=== PATIENT | male | born 1950 | race Caucasian/White ===

== ENCOUNTER 2024-12-08 18:32 | Emergency (ER) | payer MEDICARE, BC, SELFPAY ==
[2024-12-08] VITALS (13 sets, daily range): BP systolic 125–172; BP diastolic 79–99; PULSE 73–118; RESP 6–33; TEMP 37.9; O2SAT 95–98
--- NOTE | 2024-12-08 19:19 | ED.CHESTPAIN ---
HPI - Chest Pain General Chief Complaint: Chest Pain Stated Complaint: Chest pain Time Seen by Provider: 12/08/24 18:45 History of Present Illness HPI narrative: This 74-year-old male comes in with his and reports some chest discomfort that began about 5 hours prior to arrival. He states that he can make it worse by taking a deep breath. He does not have any nausea, vomiting, lightheadedness, shortness of breath, or diaphoresis. He does not have any exercise intolerance and states that he shovels snow the last couple days without any symptoms. He does have risk factors for heart disease including his father and his younger brothers. He does not smoke but does have diabetes with hyperlipidemia and hypertension. Related Data Home Medications ?Medication ?Instructions ?Recorded ?Confirmed metformin 500 mg tablet mg 12/08/24 simvastatin 10 mg tablet 10 mg PO DAILY 12/08/24 12/08/24 Previous Rx's ?Medication ?Instructions ?Recorded apixaban 5 mg tablet (Eliquis) 5 mg PO BID #60 tabs 12/08/24 Allergies Allergy/AdvReac Type Severity Reaction Status Date / Time No Known Drug Allergies Allergy Verified 12/08/24 20:55 Review of Systems Status of ROS Reports: 10 or more systems reviewed and unremarkable except as noted in History and below Narrative Constitutional: No fevers, no weight gain or loss. Eyes: No discharge. No vision changes. HENT: No congestion, no sore throat, no ear pain. Cardiovascular: No palpitations. Respiratory: No shortness of breath, no wheezes, no cough. Gastrointestinal: No abdominal pain, no vomiting, no diarrhea. Genitourinary: No dysuria, no hematuria. Musculoskeletal: Normal range of motion. Skin: No rashes, no pruritis. Neurological: No dizziness, weakness, sensory change, speech change. Endo/Heme/Allergies: No bruising or bleeding. No polydipsia. Pysch: no suicidality, no anxiety, no insomnia. All other systems reviewed and are negative. PFSH PFSH Social History Smoking Status: Unknown if ever smoked How often do you have a drink containing alcohol: never AUDIT-C Alcohol total score: 0 Non-prescribed substance use: denies use Exam Narrative Exam Narrative: Constitutional: Well-developed, well-nourished, no acute distress. HEENT: Normocephalic, atraumatic. Neck: Normal range of motion. Nontender. Supple. Heart: Irregular. No murmurs. Tachycardia. Intact distal pulses. Lungs: Clear to auscultation. No chest discomfort. No wheezes, rhonchi, or rales. Abdomen: Normal bowel sounds. Nontender. No rebound tenderness. Genitalia: Deferred. Back: No midline tenderness. Normal range of motion. Extremities: Normal range of motion. No injury. Skin: Intact. No rash. Warm. No erythema or pallor. Neurologic: No altered sensation. No weakness. Alert and oriented. Psychiatric: No suicidality. No anxiety or depression. No insomnia. Nursing notes and vitals signs are reviewed. Const Vital Signs, click to edit/add: Vital Signs - 24 hr 12/08/24 18:52 12/08/24 19:02 12/08/24 19:33 Temperature 100.2 F H Pulse Rate 107 H 106 H Pulse Rate [Pulse Oximeter] 118 H Respiratory Rate 20 22 13 Blood Pressure 172/99 H 156/95 H Blood Pressure [Right Upper Arm] 167/87 H Pulse Oximetry 98 96 96 Oxygen Delivery Method Room Air Course Vital Signs Vital signs: Initial Vital Signs Temperature 100.2 F H 12/08/24 18:52 Temperature Source Temporal Artery Scan 12/08/24 18:52 Pulse Rate 118 H 12/08/24 18:52 Respiratory Rate 20 12/08/24 18:52 Blood Pressure 167/87 H 12/08/24 18:52 Blood Pressure Mean 113 H 12/08/24 18:52 Pulse Oximetry 98 12/08/24 18:52 Oxygen Delivery Method Room Air 12/08/24 18:52 Vital Signs Temperature 100.2 F H 12/08/24 18:52 Pulse Rate 118 H 12/08/24 18:52 Respiratory Rate 20 12/08/24 18:52 Blood Pressure 167/87 H 12/08/24 18:52 Pulse Oximetry 98 12/08/24 18:52 Oxygen Delivery Method Room Air 12/08/24 18:52 Temperature 100.2 F H 12/08/24 18:52 Pulse Rate 106 H 12/08/24 19:33 Respiratory Rate 13 12/08/24 19:33 Blood Pressure 156/95 H 12/08/24 19:33 Pulse Oximetry 96 12/08/24 19:33 Oxygen Delivery Method Room Air 12/08/24 18:52 Medications Administered Medications: Generic Name Dose Route Start Last Admin Trade Name Glynn PRN Reason Stop Dose Admin Apixaban 10 mg 12/08/24 20:29 12/08/24 20:54 Apixaban 5 Mg Tablet PO 12/08/24 20:30 10 mg ONCE ONE Administration Propofol 200 mg 12/08/24 20:29 12/08/24 20:47 Propofol 10 Mg/Ml Inj IV 12/08/24 20:30 60 mg ONCE ONE Administration Discontinued Medications Generic Name Dose Route Start Last Admin Trade Name Glynn PRN Reason Stop Dose Admin Diltiazem HCl 20 mg 12/08/24 19:18 12/08/24 19:39 Diltiazem 5 Mg/Ml Inj IVP 12/08/24 19:19 20 mg ONCE ONE Administration Sodium Chloride 1,000 mls @ 1,000 mls/hr 12/08/24 19:30 12/08/24 19:48 0.9 % Sodium Chloride 1000 Ml IV 12/08/24 20:29 1,000 mls/hr .Q1H ALTAGRACIA Administration Magnesium Sulfate 2 gm 12/08/24 19:18 12/08/24 19:40 Magnesium Sulfate 2 Gm/50 Ml Piggyback IVPB 12/08/24 19:19 2 gm ONCE ONE Administration MDM - Chest Pain MDM Narrative Medical decision making narrative: This 74-year-old male comes in reporting some reproducible chest discomfort and is noted to have new onset atrial fibrillation and heart rate a bit increased. An IV is established where he did receive 2 g of magnesium and 20 mg of diltiazem. His heart rate returned back into normal range but he continues in atrial fibrillation. Lab results returned with reassuring findings. His troponin is in normal range. EKG is not showing any sign of ST or T-wave abnormalities. I did discuss with the patient some options going forward regarding his atrial fibrillation. He seems rather certain that this rhythm began earlier today. He is a good candidate for synchronized cardioversion. The medicines he received did not bring about returned to normal sinus rhythm. After informed consent was acquired the patient was connected to the pads for synchronized cardioversion. Dr. Jose assisted in this procedure. She administered 60 mg of propofol for adequate sedation. Synchronized cardioversion was attempted once with successful results using 150 joules of energy. The patient returned to normal sinus rhythm and tolerated the procedure well. He did not need any respiratory support through to out this time. He did receive a tablet of Eliquis 10 mg and I prescribed a starter pack for Eliquis to be taken over the next month or so. Lab Data Labs: Lab Results 12/08/24 Range/Units 19:15 WBC 12.84 H (4.50-11.00) K/uL RBC 4.79 (4.30-5.90) m/uL Hgb 13.4 L (13.5-17.5) gm/dL Hct 41.3 (37.0-53.0) % MCV 86 (80-100) fL MCH 28 (26-34) pg MCHC 32 (32-36) gm/dL RDW Coeff of Victoriano 13.1 (11.5-15.5) % Plt Count 270 (140-440) K/uL Neut % (Auto) 86.1 H (42.0-72.0) % Lymph % (Auto) 5.4 L (20-44) % [place] % (Auto) 7.9 (0.0-11.0) % Eos % (Auto) 0.3 (0.0-7.0) % Baso % (Auto) 0.2 (0.0-3.0) % Neut # (Auto) 11.10 H (1.7-7.0) K/uL Lymph # (Auto) 0.70 L (0.90-2.90) K/uL [place] # (Auto) 1.00 H (0.00-0.90) K/UL Eos # (Auto) 0.00 (0.00-0.50) K/uL Baso # (Auto) 0.00 (0.00-0.30) K/uL Abs Immat Gran (auto) 0.00 (0.00-0.30) K/uL Imm/Tot Granulo (auto) 0.1 % Sodium 138 (135-149) mmol/L Potassium 3.9 (3.6-5.1) mmol/L Chloride 104 (96-114) mmol/L Carbon Dioxide 21 (20-32) mmol/L Anion Gap 13 (7-15) mEq/L BUN 15 (7-30) mg/dL Creatinine 0.8 (0.5-1.5) mg/dL Estimated GFR 94 ml/min Glucose 143 H (60-115) mg/dL Calcium 9.3 (8.4-10.6) mg/dL Magnesium 2.0 (1.5-2.6) mg/dL POC Troponin I 0.01 (0.01-0.04) ng/ml ECG Data Attestation: I personally reviewed and interpreted this ECG as follows: Interpretation: Atrial fibrillation. Rate is 106 beats per minute. There are no specific ST or T-wave abnormalities. Discharge Plan Discharge Clinical Impression: Atrial fibrillation with rapid ventricular response Patient Disposition: Home w/ Parent or Adult Condition: Improved Additional Instructions: Take Eliquis as prescribed. Follow up with MD or return if symptoms are recurrent or worsening. Prescriptions: New Eliquis 5 mg tablet 5 mg PO BID Qty: 60 2RF No Action metformin 500 mg tablet Patient Comments: TAKE 2 TABLETS (1000 MG) BY MOUTH TWICE A DAY simvastatin 10 mg tablet 10 mg PO DAILY Follow Up/Referrals: Provider,Not a Local [Primary Care Provider] - Stand Alone Forms: [employer] Info Instructions
[2024-12-08 19:27] LABS: Basophils Percent Auto 0.2 % (0.0-3.0); Eosinophils Percent Auto 0.3 % (0.0-7.0); Hematocrit 41.3 % (37.0-53.0); Hemoglobin* 13.4 gm/dL (13.5-17.5); Immature Granulocytes Pct Auto 0.1 %; Lymphocytes Percent Auto 5.4 % (20-44); Mean Corpuscular HGB Conc 32 gm/dL (32-36); Mean Corpuscular Hemoglobin 28 pg (26-34); Mean Corpuscular Volume 86 fL (80-100); Monocytes Percent Auto 7.9 % (0.0-11.0); Neutrophils Percent Auto 86.1 % (42.0-72.0); Platelet Count* 270 K/uL (140-440); RDW Coefficient of Variation % 13.1 % (11.5-15.5); Red Blood Count 4.79 m/uL (4.30-5.90); White Blood Count* 12.84 K/uL (4.50-11.00)
--- OUTSIDE RECORDS SUMMARY | 2024-12-08 19:32 | XMS_ITS | Clinical Summary ---
Author Organization [email or web address] Address [address] [place] [address] Care Team Providers Care Puppet Maker Name Role Phone Gallo Alicea MD Primary Care Provider + [phone] Gallo Alicea MD Unavailable [phone] Allergies No known active allergies Medications aspirin 81 mg enteric coated tablet Take 1 tablet (81 mg) by mouth 1 time per day 30 tablet 7 Active Multiple Vitamins-Minerals (ICAPS AREDS 2 PO) Take 1 tablet by mouth 2 times a day Active Multiple Vitamins-Minerals (MULTIVITAMIN ADULTS 50+) TABS Take by mouth 1 time per day Active ReliOn Lancets Thin 26G MISCIndications:Con trolled type 2 diabetes mellitus without complication, without long-term current use of insulin (HCC) 1 each 1 time per day DX code: E11.9 100 each 3 1 Active sildenafil (VIAGRA) 100 MG tabletIndications:E rectile dysfunction, unspecified erectile dysfunction type Take 1 tablet (100 mg) by mouth 1 time a day as needed for other (Specify) (sexual activity) 30 tablet 3 3 Active Accu-Chek Rachel Plus test stripIndications:Co ntrolled type 2 diabetes mellitus without complication, without long-term current use of insulin ([facility]) USE 1 STRIP TO CHECK GLUCOSE ONCE DAILY 100 each 3 4 Active Blood Glucose Monitoring Suppl (BLOOD GLUCOSE MONITOR SYSTEM) w/DeviceIndications :Controlled type 2 diabetes mellitus without complication, without long-term current use of insulin ([facility]),Diabetes mellitus with background retinopathy (HCC) 1 each 1 time per day Glucose monitor and strips covered by his medicare 1 Kit 4 Active ciclopirox (PENLAC) 8 % solutionIndications :Onychomycosis Apply to affected area 2 times a day 6 mL 1 4 Active metFORMIN (GLUCOPHAGE) 500 MG tabletIndications:C ontrolled type 2 diabetes mellitus without complication, without long-term current use of insulin (HCC) Take 2 tablets (1,000 mg) by mouth 2 times a day 360 tablet 2 4 Active simvastatin (ZOCOR) 10 mg tabletIndications:M ixed hyperlipidemia TAKE 1 TABLET BY MOUTH ONCE DAILY IN THE EVENING AT BEDTIME 90 tablet 1 4 Active Active Problems Problem Noted Date Diagnosed Date Obesity (BMI 30-39.9) 03/02/2024 Epiretinal membrane (ERM) of left eye 03/30/2019 Early dry stage nonexudative age-related macular degeneration of both eyes 03/24/2018 Posterior vitreous detachment of both eyes 03/24 Vitreous floaters of both eyes 09/16/2016 Hyperlipidemia 05/22/2014 Hyperopia with astigmatism and presbyopia 2013 Controlled type 2 diabetes mellitus without comp lication 06/18/2011 Screening for condition 03/10/2011 Special screening for malignant neoplasm of pros vyas 03/10/2011 Orchitis and epididymitis 08/26/2006 Diabetes mellitus with background retinopathy Encounters Date Type Department Care Team Description 09/22/2024 Results Follow-Up [facility] [address] [place] [id number] Gallo Alicea MD 09/21/2024 2:00 PM KINESIOTHERAPIST Office Visit [facility] [address] [place] [address] [place] [address] Gallo Alicea MD Anemia, unspecified type (Primary Dx); Controlled type 2 diabetes mellitus without complication, without long-term current use of insulin ([facility]); Mixed hyperlipidemia; Onychomycosis 09/21/[address] [place] [address] Soheila Alonso RN 09/20/2024 11:15 AM KINESIOTHERAPIST Orders Only [facility] [address] [place] [phone] Gallo Alicea MD Controlled type 2 diabetes mellitus without complication, without long-term current use of insulin (HCC); Hematuria, unspecified type from Last 3 Months Immunizations Immunization Administration Dates Next Due Influenza Trivalent w/preserv 06/19/2011 INFLUENZA FLUCELVAX SINGLE D OSE 6 MONTHS AND UP 09/18/2015 INFLUENZA HIGH DOSE (FLUZONE ) 65 YEARS AND UP 06/10/2024,08/21/2023,08/06/2022,06/26,08/04/2020,12/18/2019,08/31/2018 ,08/11/2017 INFLUENZA SINGLE DOSE 0.5ML 6 MONTHS AND UP 11/12/2016 Influenza High Dose Quadrivalent 08/06/2022,06/06,08/04/2020 Influenza Vaccine 08/07/2012 Influenza Vaccine,unspecified 09/18/2015 Moderna COVID-19 Vaccine (Re d Top)12 years and up 06/10/2024 Pfizer COVID-19 BIVALENT Vac cine (Orr Cap) 12 YR and up 07/30/2022 Pfizer COVID-19 MONOVALENT ( Orr Top) 12 Years and up 02/17/2022 Pfizer COVID-19 Vaccine (COM IRNATY) 12 Years And Up 08/31/2023 Pfizer COVID-19 Vaccine(Purp le Top) 12 Years and up 08/01/2021,12/28/2020,12/07/2020 Pneumococcal Conj PCV13 01/04/2016 Pneumococcal Polysaccharide PPSV23 08/31/2018, RSV (ABRYSVO) IM Vaccine 60 Yrs and up or during 32-36 weeks gestation 09/24/2023 TD,adsorbed, 7 years and up 03/10/2011, 7 TDAP 06/26/2021 Td Vaccine (Tenivac) 7 Years and Up 03/10/2011 Zoster Live(Zostavax) 09/18/2015 Family History Medical History Relation Comments Heart Disease Brother 2 Cataracts Father Heart Disease Father Macular Degeneration Father Diabetes Maternal Grandmother Not otherwise listed - Cancer Mother Diabetes Other Macular Degeneration Paternal Uncle Not otherwise listed - Cancer Sister 2 br east Amblyopia Neg Hx Blindness Neg Hx Glaucoma Neg Hx Retinal Detachment Neg Hx Relation Status Comments Brother 1 Alive Brother 2 Alive Father Alive Maternal Grandmother Mother Alive Other Paternal Uncle Sister 1 Alive Sister 2 Alive Social History Tobacco Use Types Packs/Day Years Used Date Smoking Tobacco: Former Cigars Smokeless Tobacco: Never Comments:Cigars #/Week: occa sional Alcohol Use Standard Drinks/Week Comments Yes 2 (1 standard drink = 0.6 oz pur e alcohol) PHQ-2 Answer Date Recorded PHQ-2 Total 0 03/02/2024 Abuse/Neglect Answer Date Recorded Member of Clubs or Organizations Not on file 09/21/2024 Does the patient display any signs or symptoms of abuse or neglect? No 09/21/2024 Sexually Active Control Partners Comments Not Currently Sex and Gender Information Value Date Recorded Sex Assigned at Not on file Legal Sex Male 5:04 AM CDT Gender Identity Not on file Sexual Orientation Not on file Last Filed Vital Signs Vital Sign Reading Time Taken Comments Blood Pressure 128/70 09/21/2024 11:01 AM KINESIOTHERAPIST Pulse 68 09/21/2024 11:01 AM KINESIOTHERAPIST Temperature 36.7 C (98.1 F) 09/21/2024 11:01 AM KINESIOTHERAPIST Respiratory Rate 20 09/21/2024 11:0 1 AM KINESIOTHERAPIST Oxygen Saturation 98% 06/05/2023 11: 50 AM CDT room air Inhaled Oxygen Concentration - - Weight 103.1 kg (227 lb 3.2 oz) 024 11:01 AM KINESIOTHERAPIST Height 177.8 cm (5' 10) 07/12/2024 12: 55 PM CDT Body Mass Index 32.6 07/12/2024 12:55 PM CDT Plan of Treatment Upcoming Encounters Date Type Department Care Team (Late st Contact Info) Description 12/28/2024 11:00 AM CDT Office Visit [facility] [address] [place] [address] Gallo Alicea MD [address] [place] [address] 03/22/2025 1:00 PM CDT Office Visit [facility] [address] [place] [address] Renetta Jackson, OD [address] [place] [address] 04/18/2025 8:05 AM CDT Hospital Encounter [facility] [address] [place] [address] Daryl Bueno MD [address] [place] [address] Screening for colon cancer 04/18/2025 8:05 AM CDT - 04/18/2025 9:08 AM CDT Surgery [facility] [address] [place] [address] Daryl Bueno MD [address] [place] [address] COLONOSCOPY Scheduled Procedures Name Priority Associated Diagnoses Date/Ti me COLONOSCOPY Screening for colon cancer 04/18/2025 8:05 AM CDT Health Maintenance Due Date Last Done Comments Zoster Vaccine (2 of 3) 11/13/2015 09/18/2015 [employer] Directive document 01/31/2017 Hemoglobin A1C Every 3 Months 10/03/2024 07/04/2024, 02/26/2024, 05/21/2023, Additional history exists Covid-19 Vaccine ( season) 2024 06/10/2024, 06/10/2024, 08/31/2023, Additional history exists Diabetic Foot Exam 03/02/2025 03/02/2024, 0 02/11/2022, 02/28/2021, Additional history exists Ophthalmology Exam 03/21/2025 03/21/2024, 0 03/21/2024, 03/16/2023, Additional history exists Colonoscopy 04/16/2025 04/16/2020, 04/04, 04/15/2017, Additional history exists Creatinine 07/04/2025 07/04/2024, 02/03, 05/21/2023, Additional history exists Lipid Screening 07/04/2025 07/04/2024, 05/05, 06/16/2022, Additional history exists Microalbumin 07/04/2025 07/04/2024, 05/05, 06/16/2022, Additional history exists ALT 07/04/2027 07/04/2024, 02/03, 05/21/2023, Additional history exists AST 07/04/2027 07/04/2024, 02/03, 05/21/2023, Additional history exists Platelets 09/20/2027 09/20/2024, 09/04, 07/04/2024, Additional history exists TDAP/TD VACCINE (2 - Td or Tdap) 06/26/2031 06/26/2021, 03/10/2011, 03/10/2011, Additional history exists Hepatitis C Screening Completed 08/04/2017 Pneumococcal Vaccine 50yr + Completed 08/06, 01/04/2016, 03/10/2011 RSV Vaccine, Adult Completed 09/24/2023 Influenza Vaccine Completed 06/10/2024, , 08/06/2022, Additional history exists Hepatitis B Vaccine Aged Out No longe r eligible based on patient's age to complete this topic Procedures Procedure Name Priority Date/Time Associated Diagnosis Comments URINALYSIS DIPSTICK REFLEX TO MICROSCOPIC Routine 09/20/2024 11:20 AM KINESIOTHERAPIST Hematuria, unspecified type LAB ONLY-COMPLETE BLOOD COUNT WITH DIFFERENTIAL Routine 09/20/2024 11:17 AM KINESIOTHERAPIST Controlled type 2 diabetes mellitus without complication, without long-term current use of insulin (HCC) LAB ONLY-COMPLETE BLOOD COUNT WITH DIFFERENTIAL Routine 09/20/2024 11:17 AM KINESIOTHERAPIST Controlled type 2 diabetes mellitus without complication, without long-term current use of insulin (HCC) LIPID PANEL Routine 07/04/2024 10:50 AM CDT Mixed hyperlipidemia COMPREHENSIVE METABOLIC PANEL Routine 07/04/2024 10:50 AM CDT Mixed hyperlipidemia ALBUMIN WITH ALBUMIN/CREATININE RATIO, RANDOM URINE Routine 07/04/2024 10:50 AM CDT Controlled type 2 diabetes mellitus without complication, without long-term current use of insulin (HCC) GLYCATED HEMOGLOBIN Routine 07/04/2024 1 0:50 AM CDT Diabetes mellitus with background retinopathy Controlled type 2 diabetes mellitus without complication, without long-term current use of insulin (HCC) COLONOSCOPY 04/16/2020 8:53 AM CDT HEP C ANTIBODY REFLEX TO QUANTITATIVE CONFIRMATION Routine 08/04/2017 7:56 AM CDT Preventative health care from Last 3 Months or Most Recently Relevant to Health Maintenance Results * URINALYSIS DIPSTICK REFLEX TO MICROSCOPIC (09/20/2024 11:20 AM KINESIOTHERAPIST) Color Urine Yellow Cheryl, Dark Yellow, Straw, Yellow, Colorless 09/20/2024 11:27 AM [facility] Clarity Urine Clear Clear 09/20/2024 11:27 AM [facility] Glucose Urine Negative Negative 09/20/2024 11:27 AM [facility] Bilirubin Urine Negative Negative 11:27 AM [facility] Ketones Urine Negative Negative, 5 mg/dL, 10 mg/dL 09/20/2024 11:27 AM [facility] Specific [place] 1.015 1.002 - 1.030 09/20/2024 11:27 AM [facility] Blood Urine Negative Negative 09/20/2024 11:27 AM [facility] PH Urine 6.0 5.0, 5.5, 6.0, 6.5, 7.0, 7.5, 8.0 09/20/2024 11:27 AM [facility] Protein Urine Negative Negative 09/20/2024 11:27 AM [facility] Urobilinogen < 2 mg/dL < 2 mg/dL 09/20/2024 11:27 AM KINESIOTHERAPIST [facility] Nitrite Negative Negative 09/20/2024 11:27 AM [facility] Leukocyte Esterase Urine Negative Negative 09/20/2024 11:27 AM [facility] Urine URINE SPECIMEN OBTAINED BY CLEAN CATCH PROCEDURE / Unknown Collection / Unknown 09/20/2024 11:20 AM KINESIOTHERAPIST 09/20/2024 11:19 AM KINESIOTHERAPIST Narrative [facility] - 09/20/2024 11:27 AM KINESIOTHERAPIST Microscopic exam not indicated us Gallo Alicea MD LAB NON BLOOD Final Resu lt [facility] [address] [place] [address] * LAB ONLY-COMPLETE BLOOD COUNT WITH DIFFERENTIAL (09/20/2024 11:17 AM KINESIOTHERAPIST) WBC 7.9 4.0 - 11.0 K/uL 09/20/2024 11:24 AM [facility] RBC 5.07 4.40 - 5.80 M/uL 09/20/2024 11:24 AM [facility] Hemoglobin 14.3 13.5 - 17.5 g/dL 09/20/2024 11:24 AM [facility] Hematocrit 43.8 40.0 - 50.0 % 09/20/2024 11:24 AM [facility] MCV 86.4 80.0 - 98.0 fL 09/20/2024 11:24 AM [facility] MCH 28.2 25.5 - 34.0 pg 09/20/2024 11:24 AM [facility] MCHC 32.6 31.5 - 36.5 g/dL 09/20/2024 11:24 AM [facility] RDW-CV 13.6 11.5 - 15.5 % 09/20/2024 11:24 AM [facility] RDW-SD 42.3 35.5 - 50.0 fl 09/20/2024 11:24 AM [facility] Platelet Count 293 140 - 400 K/uL 09/20/2024 11:24 AM [facility] MPV 9.4 8.5 - 12.0 fL 09/20/2024 11:24 AM [facility] Seg Neut Absolute 5.0 1.8 - 8.0 K/uL 09/20/2024 11:24 AM [facility] Lymphocytes Absolute 1.9 0.8 - 4.1 K/uL 09/20/2024 11:24 AM [facility] Monocytes Absolute 0.7 0.0 - 1.0 K/uL 09/20/2024 11:24 AM [facility] Eosinophils Absolute 0.3 0.0 - 0.7 K/uL 09/20/2024 11:24 AM [facility] Basophil Absolute 0.1 0.0 - 0.2 K/uL 09/20/2024 11:24 AM [facility] Immature Granulocyte Absolute <0.04 0.00 - 0.06 K/uL 09/20/2024 11:24 AM [facility] Neutrophils Abs. (Segs and Bands) 5,000 /uL 09/20/2024 11:24 AM [facility] Neutrophils Percent 62.8 % 09/20/2024 11:24 AM [facility] Lymphocytes Percent 23.5 % 09/20/2024 11:24 AM [facility] Monocytes Percent 9.4 % 09/20/2024 11:24 AM [facility] Immature Granulocyte Percent 0.3 % 09/20/2024 11:24 AM [facility] Eosinophils Percent 3.2 % 09/20/2024 11:24 AM [facility] Basophil Percent 0.8 % 09/20/20 11:24 AM [facility] Nucleated RBC 0 <=1 /100 WBC's 09/20/2024 11:24 AM [facility] Blood BLOOD SPECIMEN / Unknown Venipuncture / Unknown 09/20/2024 11:17 AM KINESIOTHERAPIST 09/20/2024 11:17 AM [facility] us Gallo Alicea MD LAB ONLY ORDERS Final Resu lt [facility] [address] [place] [address] * ALBUMIN WITH ALBUMIN/CREATININE RATIO, RANDOM URINE (07/04/2024 10:50 AM CDT) Creatinine Urine 87.80 No Reference Range Established mg/dL 07/04/2024 10:09 PM CDT [facility] Albumin mg/dL <0.50 No Reference Range Established mg/dL 07/04/2024 10:09 PM CDT [facility] Albumin/Creati nine Ratio 07/04/2024 10:09 PM CDT [facility] Comment:Unable to calculate Albumin/Creatinine Ratio. Urine VOIDED URINE SPECIMEN / Unknown Collection / Unknown 07/04/2024 10:50 AM CDT 07/04/2024 10:50 AM CDT Gallo Alicea MD LAB NON BLOOD Final Resu lt [address] [address] * (ABNORMAL) LIPID PANEL (07/04/2024 10:50 AM CDT) Cholesterol 126 <200 mg/dL 07/04/2024 11:29 AM CDT [facility] Triglyceride 183(H) <150 mg/dL 07/04/2024 11:29 AM CDT [facility] HDL 31(L) >=40 mg/dL 07/04/2024 11:29 AM CDT [facility] LDL 58 <=100 mg/dL 07/04/2024 11:29 AM CDT [facility] Blood BLOOD SPECIMEN / Unknown Venipuncture / Unknown 07/04/2024 10:50 AM CDT 07/04/2024 10:50 AM CDT Gallo Alicea MD LAB BLOOD Final Resu lt [facility] [address] [place] [phone] * (ABNORMAL) GLYCATED HEMOGLOBIN (07/04/2024 10:50 AM CDT) Hgb A1C 6.3(H) <5.7 % 07/04/2024 11:14 AM CDT [facility] Estimated Average Glucose 134 mg/dL 07/04/2024 11:14 AM CDT [facility] Blood BLOOD SPECIMEN / Unknown Venipuncture / Unknown 07/04/2024 10:50 AM CDT 07/04/2024 10:50 AM CDT Narrative [facility] - 07/04/2024 11:14 AM CDT ADA Interpretive Guidelines When Using HbA1c for Diagnosis Prediabetes 5.7 - 6.4% Diabetes >= 6.5% When monitoring a person known to have diabetes mellitus, A1C goals must be individualized, however an A1C of <7% is reasonable for most children, adolescents and non adults. ADA Standards of Medical Care in Diabetes - 2023 Gallo Alicea MD LAB BLOOD Final Resu lt Performing Organization Address City/[facility]/ZIP Co de Phone Number [facility] [address] [place] [phone] * (ABNORMAL) COMPREHENSIVE METABOLIC PANEL (07/04/2024 10:50 AM CDT) Glucose 146(H) 70 - 99 mg/dL 07/04/2024 11:29 AM CDT [facility] BUN 16 6 - 22 mg/dL 07/04/2024 11:29 AM CDT [facility] Creatinine 0.83 0.73 - 1.18 mg/dL 07/04/2024 11:29 AM T [facility] BUN/Creatinine Ratio 19.3 10.0 - 25.0 07/04/2024 11:29 AM [facility] Sodium 140 136 - 145 meq/L 07/04/2024 11:29 AM [facility] Potassium 4.6 3.5 - 5.1 meq/L 07/04/2024 11:29 AM [facility] Chloride 107 98 - 109 meq/L 07/04/2024 11:29 AM [facility] CO2 24 20 - 29 meq/L 07/04/2024 11:29 AM [facility] Anion Gap with K 14 6 - 20 meq/L 07/04/2024 11:29 AM [facility] Calcium 9.5 8.5 - 10.5 mg/dL 07/04/2024 11:29 AM [facility] Protein Total 7.7 6.0 - 8.3 g/dL 07/04/2024 11:29 AM [facility] Albumin 3.9 3.2 - 4.6 g/dL 07/04/2024 11:29 AM [facility] Alkaline Phosphatase 71 40 - 150 U/L 07/04/2024 11:29 AM [facility] AST - SGOT 27 <6 - 45 U/L 07/04/2024 11:29 AM [facility] ALT - SGPT 34 <6 - 55 U/L 07/04/2024 11:29 AM [facility] Bilirubin Total 0.5 0.2 - 1.2 mg/dL 07/04/2024 11:29 AM [facility] Corrected Calcium 9.6 8.5 - 10.5 mg/dL 07/04/2024 11:29 AM [facility] Age 74 Years 07/04/2024 11:29 AM [facility] eGFRcr() >90 >=60 mL/min/1.7 3m2 07/04/2024 11:29 AM [facility] Blood BLOOD SPECIMEN / Unknown Venipuncture / Unknown 07/04/2024 10:50 AM CDT 07/04/2024 10:50 AM CDT us Gallo Alicea MD LAB BLOOD Final Resu lt [facility] [address] [facility] [place] [phone] * COLONOSCOPY (04/16/2020 8:53 AM CDT) COLONOSCOPY [facility] Patient Name: Miladis Chery Procedure Date: 04/16/2020 8:53 AM Date of : 1950 Admit Type: Ambulatory Age: 70 Gender: Male Surgeon: DARYL BUENO MD Procedure: Colonoscopy Indications: High risk colon cancer surveillance: Personal history of colonic polyps Providers: DARYL BUENO MD, SENA QUACH RN, RYAN ESPINOZA, PEDRITO RAMON, KINESIOTHERAPIST Medicines: Midazolam 6 mg IV, Propofol per Anesthesia Complications: No immediate complications. Estimated Blood Loss: Estimated blood loss: none. Procedure: Pre-Anesthesia Assessment: - Prior to the procedure, a History and Physical was performed, and patient medications and allergies were reviewed. The patient's tolerance of previous anesthesia was also reviewed. The risks and benefits of the procedure and the sedation options and risks were discussed with the patient. All questions were answered, and informed consent was obtained. Prior Anticoagulants: The patient has taken no previous anticoagulant or antiplatelet agents except for aspirin. ASA Grade Assessment: II - A patient with mild systemic disease. After reviewing the risks and benefits, the patient was deemed in satisfactory condition to undergo the procedure. After I obtained informed consent, the scope was passed under direct vision. Throughout the procedure, the patient's blood pressure, pulse, and oxygen saturations were monitored continuously. The Colonoscope was introduced through the anus and advanced to 5 cm into the ileum. The colonoscopy was performed without difficulty. The patient tolerated the procedure well. The quality of the bowel preparation was good. Findings: Multiple small and large-mouthed diverticula were found in the sigmoid colon. Impression: - Diverticulosis in the sigmoid colon. - No specimens collected. Moderate Sedation: Moderate (conscious) sedation was administered by the endoscopy nurse and supervised by the endoscopist. The following parameters were monitored: oxygen saturation, heart rate, blood pressure, respiratory rate, EKG, adequacy of pulmonary ventilation, and response to care. Total physician intraservice time was 28 minutes. Recommendation: - Patient has a contact number available for emergencies. The signs and symptoms of potential delayed complications were discussed with the patient. Return to normal activities tomorrow. Written discharge instructions were provided to the patient. - Resume previous diet. - Repeat colonoscopy in 5 years for surveillance. - Return to primary care physician PRN. Daryl Bueno MD DARYL BUENO MD 04/16/2020 11:19:14 AM This report has been signed electronically. Number of Addenda: 0 Note Initiated On: 04/16/2020 8:53 AM Procedure Date: 04/16/2020 8:53:48 AM Scope Withdrawal Time 0 hours 21 minutes 37 seconds Total Procedure Duration Time 0 hours 28 minutes 0 seconds Scope In: 10:36:40 AM Scope Out: 11:04:40 AM 04/16/2020 8:53 AM CDT us Daryl Bueno MD IP PROCEDURES Edited R esult - Final * HEPATITIS C ANTIBODY REFLEX TO HCV RNA CONFIRMATION (08/04/2017 7:56 AM CDT) Hepatitis C Antibody Interp Nonreactive Nonreactive 08/04/2017 10:27 PM CDT [facility] Blood BLOOD SPECIMEN / Unknown Venipuncture / Unknown 08/04/2017 7:56 AM CDT 08/04/2017 7:57 AM CDT us Gallo Alicea MD LAB BLOOD Final Resu lt [address] [address] from Last 3 Months or Most Recently Relevant to Health Maintenance Advance Directives For more information, please contact: [phone] * Full Code (Latest Code Status on File) Date Activated Date Inactivated Comments 04/16/2020 9:10 AM 04/16/2020 6:44 PM * Full Code Date Activated Date Inactivated Comments 04/14/2017 3:34 PM 04/16/2017 6:15 AM Care Teams Puppet Maker Relationship Specialty Start Date End Date Gallo Alicea MD [address] [place] [address] PCP - General Internal Medicine 03/10/12 Gallo Alicea MD [address] [place] [address] PCP - Attributed Provider 08/27/16
[2024-12-08 19:38] LABS: Chloride* 104 mmol/L (96-114); Sodium* 138 mmol/L (135-149)
[2024-12-08 19:39] LABS: Potassium* 3.9 mmol/L (3.6-5.1); Slide Review Reflex No
[2024-12-08] MEDS: dilTIAZem 5 MG/ML inj 20 MG IVP (19:39)
[2024-12-08] MEDS: MAGNESIUM SULFATE 2 GM/50 ML PIGGYBACK IVPB (19:40)
[2024-12-08 19:42] LABS: Anion Gap 13 mEq/L (7-15); Blood Urea Nitrogen* 15 mg/dL (7-30); Calcium* 9.3 mg/dL (8.4-10.6); Carbon Dioxide* 21 mmol/L (20-32); Creatinine* 0.8 mg/dL (0.5-1.5); Estimated Glomerular Filt Rate 94 ml/min; Glucose* 143 mg/dL (60-115)
[2024-12-08] MEDS: 0.9 % SODIUM CHLORIDE 1000 ml 1,000 ML IV (19:48)
[2024-12-08 19:52] LABS: Troponin, Point-of-Care* 0.01 ng/ml (0.01-0.04)
[2024-12-08] MEDS: PROPOFOL 10 MG/ML INJ 200 MG IV (20:47)
[2024-12-08] MEDS: APIXABAN 5 MG TABLET 10 MG PO (20:54)
== END 2024-12-08 21:30 | disposition home or self-care (01) ==
PROVIDERS: Emergency Provider Emergency Medicine Emergency Medical Services
DX: I48.20 Chronic atrial fibrillation, unspecified (principal)
CPT/HCPCS: 92960; 36415; 80048; 83735; 84484; 85025; 93005; 96374; 96375; 99284; 99285; A9270; J2704; J3475; J7030